=== PATIENT | male | born 1980 | race Caucasian/White ===

== ENCOUNTER 2016-10-25 18:46 | Emergency (ER) | payer OTHER ==
[2016-10-25] MEDS ORDERED: LIDOCAINE 2% 20 ML ONE (20:31)
== END 2016-10-25 21:59 | disposition home or self-care (01) ==
LOC: ER 18:46
DX: S61.211A Laceration without foreign body of left index finger without damage to nail, initial encounter (principal); W27.8XXA Contact with other nonpowered hand tool, initial encounter; Y92.009 Unspecified place in unspecified non-institutional (private) residence as the place of occurrence of the external cause